=== PATIENT | female | born 1955 | race Asian ===

== ENCOUNTER → 2017-08-01 | Outpatient (CLI) | payer OTHER | LOC: FIMAGING 12:02 | PROVIDERS: ATTEND Obstetrics & Gynecology | DX: Z12.31 Encounter for screening mammogram for malignant neoplasm of breast (principal) | CPT/HCPCS: G0202 ==

== ENCOUNTER → 2018-07-16 | Outpatient (CLI) | payer OTHER | LOC: FIMAGING 12:27 | PROVIDERS: ATTEND Obstetrics & Gynecology | DX: Z12.31 Encounter for screening mammogram for malignant neoplasm of breast (principal) ==

== ENCOUNTER 2019-03-16 12:55 | Emergency (ER) | payer OTHER ==
--- NOTE | 2019-03-16 13:13 | EDPHY ---
H & P Time Seen by Provider: 03/16/19 13:12 HPI/ROS: CHIEF COMPLAINT: Dizzy lightheaded HISTORY OF PRESENT ILLNESS: Patient has been under a lot of stress recently. Her mother in 2017 and she has been dealing with extra care responsibilities with her daughter's baby. A dog that meant a lot to the family just recently . She had her 1st episode or "spell" on Sunday night which she felt dizzy lightheaded mildly short of breath and a little bit off balance like she wanted to sit down. Went away and then intermittently did not feel well yesterday. She went to dinner last night had another spell and they took the food to go and went home. Today she just feels a little bit dizzy and lightheaded. Her blood pressure was 170/112 today. She has a slight right headache not thunderclap in onset or worst of life. Denies chest pain or shortness of breath currently. No syncope or presyncope. No neck pain or vertigo. REVIEW OF SYSTEMS: Eye: no change in vision or double vision ENT: no sore throat or hearing symptoms, during her spell had a little bit of jaw discomfort on Sunday but none since. Cardiac: HPI Pulmonary: HPI, no cough or hemoptysis, not short of breath now. Abdomen: no vomiting, diarrhea, abdominal pain Musculoskeletal: Intermittent right leg cramps at the site of a varicose vein is since last Skin: no rash Neuro: HPI, no confusion or weakness or numbness in extremities. Constitutional: no fever : no urinary symptoms A comprehensive 10 point review of systems is otherwise negative aside from elements mentioned in the history of present illness. PAST MEDICAL HISTORY: Includes hypertension, was diagnosed and started on triamterene a long time ago but has been off medications since December of this year Social history: Nonsmoker, negative for family history of venous thromboembolism. Here with her . Stress as noted above. General Appearance: Alert and conversant, cooperative. Eyes: No scleral icterus. ENT, Mouth: Normal mucous membranes. Normal TMs. Respiratory: Normal respiratory effort, breath sounds equal, lungs are clear to auscultation. No wheezing. Cardiovascular: Regular rate and rhythm. No murmur. Gastrointestinal: Abdomen is soft and non tender. Neurological: Alert, face symmetric, normal motor and sensory in extremities. Ambulatory without ataxia, fluent speech. Normal [id number] bilaterally without pronator drift. Skin: Warm and dry, no rashes. Musculoskeletal: No peripheral edema. No calf tenderness. Varicose vein on the right leg in the area near the saphenous. Psychiatric: Mild anxiety. Emergency Department course/MDM: More likely stress related, I think that DVT or PE, ACS or pulmonary embolism, intracranial bleed or ischemic stroke or MIL[employer] PASTE[employer] infection are all less likely. EKG, chest x-ray, troponin and D-dimer. CT head noncontrast. 1503: 127/54, feels better, more likely symptoms exacerbated by stress. Normal imaging, EKG, and labs discussed with patient and . They state they are comfortable with plan for discharge and outpatient management. I do not think she is likely having hypertensive emergency. Smoking Status: Never smoked Constitutional: Initial Vital Signs Temperature (C) 37.3 C 03/16/19 12:58 Heart Rate 77 03/16/19 12:58 Respiratory Rate 18 03/16/19 12:58 Blood Pressure 144/74 H 03/16/19 12:58 O2 Sat (%) 94 03/16/19 12:58 O2 Delivery Mode Room Air Allergies/Adverse Reactions: No Known Allergies Allergy (Unverified 03/16/19 12:58) Home Medications: Medication Instructions Recorded Triamterene 03/16/19 Medical Decision Making - Diagnostics EKG Interpretation: 12-lead EKG interpreted by me; official reading is in computer system. My interpretation is sinus rhythm rate 74 otherwise normal, no ischemic changes. Imaging Results: Imaging Impressions Head CT 03/16/19 13:41 Impression: There is no acute intracranial abnormality identified on this unenhanced CT evaluation. If there is further clinical concern regarding the patient's symptoms, MR imaging is suggested, if not otherwise contraindicated. Findings were conveyed to JESUS CHEN MD at 14:27, on 03/16/2019 using a secure [employer] text messaging system. Imaging: Discussed imaging studies w/ orthopedically impaired teacher Radiologist - Data Points Laboratory Results: Laboratory Results 03/16/19 13:30 03/16/19 13:30 03/16/19 03/16/19 03/16/19 13:35 13:30 13:30 WBC RBC Hgb Hct MCV MCH MCHC RDW Plt Count MPV Neut % (Auto) Lymph % (Auto) [place] % (Auto) Eos % (Auto) Baso % (Auto) Nucleat RBC Rel Count Absolute Neuts (auto) Absolute Lymphs (auto) Absolute Monos (auto) Absolute Eos (auto) Absolute Basos (auto) Absolute Nucleated RBC Immature Gran % Immature Gran # D-Dimer < 0.27 ug/mLFEU ug/mLFEU (0.00-0.50) Sodium 136 mEq/L mEq/L (135-145) Potassium 3.8 mEq/L mEq/L (3.5-5.2) Chloride 103 mEq/L mEq/L (97-110) Carbon Dioxide 24 mEq/l mEq/l (22-31) Anion Gap 9 mEq/L mEq/L (6-14) BUN 16 mg/dL mg/dL (7-23) Creatinine 0.8 mg/dL mg/dL (0.6-1.0) Estimated GFR > 60 Glucose 90 mg/dL mg/dL (70-100) Calcium 9.8 mg/dL mg/dL (8.5-10.4) POC Troponin I 0.00 ng/mL ng/mL (0.00-0.08) 03/16/19 13:30 WBC 8.68 10^3/uL 10^3/uL (3.80-9.50) RBC 4.70 10^6/uL 10^6/uL (4.18-5.33) Hgb 14.6 g/dL g/dL (12.6-16.3) Hct 41.8 % % (38.0-47.0) MCV 88.9 fL fL (81.5-99.8) MCH 31.1 pg pg (27.9-34.1) MCHC 34.9 g/dL g/dL (32.4-36.7) RDW 12.9 % % (11.5-15.2) Plt Count 286 10^3/uL 10^3/uL (150-400) MPV 9.2 fL fL (8.7-11.7) Neut % (Auto) 75.9 % H % (39.3-74.2) Lymph % (Auto) 18.0 % % (15.0-45.0) [place] % (Auto) 4.6 % % (4.5-13.0) Eos % (Auto) 0.5 % L % (0.6-7.6) Baso % (Auto) 0.8 % % (0.3-1.7) Nucleat RBC Rel Count 0.0 % % (0.0-0.2) Absolute Neuts (auto) 6.59 10^3/uL H 10^3/uL (1.70-6.50) Absolute Lymphs (auto) 1.56 10^3/uL 10^3/uL (1.00-3.00) Absolute Monos (auto) 0.40 10^3/uL 10^3/uL (0.30-0.80) Absolute Eos (auto) 0.04 10^3/uL 10^3/uL (0.03-0.40) Absolute Basos (auto) 0.07 10^3/uL 10^3/uL (0.02-0.10) Absolute Nucleated RBC 0.00 10^3/uL 10^3/uL (0-0.01) Immature Gran % 0.2 % % (0.0-1.1) Immature Gran # 0.02 10^3/uL 10^3/uL (0.00-0.10) D-Dimer Sodium Potassium Chloride Carbon Dioxide Anion Gap BUN Creatinine Estimated GFR Glucose Calcium POC Troponin I Point of Care Test Results: Chemistry 03/16/19 13:35 POC Troponin I 0.00 ng/mL ng/mL (0.00-0.08) Departure - Departure Disposition: Home, Routine, Self-Care Clinical Impression: Hypertension, Light-headed feeling Condition: Good Instructions: Hypertension (ED), Lightheadedness (ED) Additional Instructions: Normal EKG, troponin,d-dimer, and head CT. Please follow-up in the office with your primary care provider this week. Referrals: Liane Fournier MD [Primary Care Provider] - As per Instructions
[2019-03-16 13:46] LABS: PLATELET COUNT 286 10^3/uL (150-400)
--- NOTE | 2019-03-16 15:00 | CPEKG ---
Test Reason : OPEN Blood Pressure : / mmHG Vent. Rate : 074 BPM Atrial Rate : 074 BPM P-R Int : 169 ms QRS Dur : 087 ms QT Int : 375 ms P-R-T Axes : 064 036 048 degrees QTc Int : 416 ms Sinus rhythm Confirmed by Marcus Bush ([id number]) on 03/16/2019 2:59:36 PM Referred By: Marcus Bush Confirmed By:Marcus Bush
[2019-03-16 15:29] VITALS: BP 135/73
== END 2019-03-16 15:28 | disposition home or self-care (01) ==
DX: R42 Dizziness and giddiness (principal); I10 Essential (primary) hypertension
CPT/HCPCS: 84484-ER